=== PATIENT | female | born 1995 | race Caucasian/White ===

== ENCOUNTER 2020-02-24 15:25 | Emergency (ER) | payer BC ==
--- NOTE | 2020-02-24 15:56 | ER Document Report ---
ED Medical Screen (RME) - General Chief Complaint: Arm Pain Stated Complaint: LEFT ARM PAIN Time Seen by Provider: 02/24/20 15:42 Mode of Arrival: Wheelchair Information source: Patient Notes: 24-year-old female presented to ED for complaint of pain down the left arm that started yesterday. She states she went to the urgent care across the street and they told her her pulse was in the 150s she needed to come of the emergency room right away. She states she still has pain down her left arm. 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 She is short of breath and the pulse was 148 EKG shows 135 sinus tach. We will get blood chest x-ray and be seen by the doctors. I have greeted and performed a rapid initial assessment of this patient. A c omprehensive ED assessment and evaluation of the patient, analysis of test results and completion of medical decision making process will be conducted by an additional ED providers. Physical Exam - Vital signs Vitals: Temp Pulse Resp BP Pulse Ox 98.1 F 140 H 20 131/90 H 100 02/24/20 15:45 02/24/20 15:45 02/24/20 15:45 02/24/20 15:45 02/24/20 15:45 Course - Vital Signs Vital signs: Temp Pulse Resp BP Pulse Ox 98.1 F 140 H 20 131/90 H 100 02/24/20 15:45 02/24/20 15:45 02/24/20 15:45 02/24/20 15:45 02/24/20 15:45
--- NOTE | 2020-02-24 16:28 | RADIOLOGY REPORT (SQ) ---
EXAM DESCRIPTION: CHEST 2 VIEWS IMAGES COMPLETED DATE/TIME: 02/24/2020 4:07 pm REASON FOR STUDY: palpitations left arm pain COMPARISON: None. EXAM PARAMETERS: NUMBER OF VIEWS: two views TECHNIQUE: Digital Frontal and Lateral radiographic views of the chest acquired. RADIATION DOSE: NA LIMITATIONS: none FINDINGS: LUNGS AND PLEURA: No opacities, masses or pneumothorax. No pleural effusion. MEDIASTINUM AND HILAR STRUCTURES: No masses or contour abnormalities. HEART AND VASCULAR STRUCTURES: Heart normal size. No evidence for failure. BONES: No acute findings. HARDWARE: None in the chest. OTHER: No other significant finding. IMPRESSION: NO ACUTE RADIOGRAPHIC FINDING IN THE CHEST. TECHNICAL DOCUMENTATION: JOB ID: [id number] 2010 [employer]- All Rights Reserved Reading location - IP/workstation name: [email or web address]
[2020-02-24] MEDS ORDERED: NORMAL SALINE 1000 ML 1,000 ML IV ONE (16:34)
--- NOTE | 2020-02-24 16:40 | ER Document Report ---
ED General - General Mode of Arrival: Wheelchair <SARAI GARCIA - Last Filed: 02/24/20 20:03> <MERRICKBELENRONANROYCE - Last Filed: 02/24/20 22:28> - General Chief Complaint: Chest Pain Stated Complaint: LEFT ARM PAIN Time Seen by Provider: 02/24/20 15:42 Primary Care Provider: MARTHA FOLEY MD [ACTIVE STAFF] - 02/26/20 Notes: Patient is a 24-year-old white female with no significant past medical history presents to the emergency department with a chief complaint of left arm pain. She states it began maybe 3 days ago she cannot recall specifically. She states that it is a discomfort in the left arm that is mild vague. She states she is not able to explain it specifically. She states that initially waxed and waned but recently has become more constant. She states she began to worry given that it was her left arm so she came for evaluation. She states the only medicine she takes daily is an oral contraceptive medicine. She denies any associated chest pain or shortness of breath. Denies any lower extremity pain or swelling. Denies history of DVT or PE, recent surgery, recent travel, recent immobilization, history of cancer, non-smoker, hemoptysis. No syncopal episodes. She reports that every time she is in a doctor's office or around [facility] for herself she gets tachycardic. She states they always mention this to her and she refers to it as "white coat syndrome or something". (SARAI GARCIA) - Related Data Allergies/Adverse Reactions: orange Allergy (Verified 02/24/20 15:54) Past Medical History - General Information source: Patient - Social History Smoking Status: Unknown if Ever Smoked Family History: Reviewed & Not Pertinent <SARAI GARCIA - Last Filed: 02/24/20 20:03> Review of Systems - Review of Systems Constitutional: denies: Fever EENT: denies: Blurred vision Cardiovascular: denies: Chest pain, Palpitations, Heart racing, Orthopnea, Dyspnea, Syncope, Dizziness, Lightheaded, Edema Respiratory: denies: Cough, Hurts to breathe, Short of breath, Wheezing Gastrointestinal: denies: Abdominal pain, Diarrhea, Nausea, Vomiting Genitourinary: denies: Pain Female Genitourinary: denies: Irregular period, Vaginal bleeding Musculoskeletal: Other - Arm pain Skin: denies: Change in color Hematologic/Lymphatic: denies: Easy bleeding Neurological/Psychological: denies: Headaches <SARAI GARCIA Last Filed: 02/24/20 20:03> Physical Exam - General General appearance: Appears well, Alert In distress: None - HEENT Head: Normocephalic, Atraumatic Eyes: Normal Conjunctiva: Normal Extraocular movements intact: Yes Eyelashes: Normal Pupils: PERRL Pharynx: Normal Neck: Normal, Supple - Respiratory Respiratory status: No respiratory distress Chest status: Nontender Breath sounds: Normal Chest palpation: Normal - Cardiovascular Rhythm: Regular Heart sounds: Normal auscultation Murmur: No - Abdominal Inspection: Normal Distension: No distension Bowel sounds: Normal Tenderness: Nontender Organomegaly: No organomegaly - Extremities General upper extremity: Normal inspection, Nontender, Normal color, Normal ROM, Normal temperature General lower extremity: Normal inspection, Nontender, Normal color, Normal ROM, Normal temperature, Normal weight bearing. No: Bautista's sign - Neurological Neuro grossly intact: Yes Cognition: Normal Orientation: AAOx4 [place] Coma Scale Eye Opening: Spontaneous [place] Coma Scale Verbal: Oriented [place] Coma Scale Motor: Obeys Commands [place] Coma Scale Total: 15 Speech: Normal Cranial nerves: Normal Cerebellar coordination: Normal Additional motor exam normals: Equal block inspector Sensory: Normal - Psychological Associated symptoms: Normal affect, Normal mood - Skin Skin Temperature: Warm Skin Moisture: Dry Skin Color: Normal <SARAI GARCIA Last Filed: 02/24/20 20:03> - Vital signs Vitals: Temp Pulse Resp BP Pulse Ox 98.1 F 140 H 20 131/90 H 100 02/24/20 15:45 02/24/20 15:45 02/24/20 15:45 02/24/20 15:45 02/24/20 15:45 Course - Laboratory Result Diagrams: 02/24/20 16:41 02/24/20 16:41 <SARAI GARCIA Last Filed: 02/24/20 20:03> - Laboratory Result Diagrams: 02/24/20 16:41 02/24/20 16:41 <ROYCE DUONG - Last Filed: 02/24/20 22:28> - Re-evaluation Re-evalutation: 02/24/20 16:40 EKG: At 1551. Sinus tachycardia at 135 bpm. Normal intervals. No STEMI. Interpreted by ED attending. 02/24/20 19:21 Patient's work-up is completely unremarkable with the exception of the tachycardia. Discussed with the patient and she states that she feels very anxious and nervous "all the time". Discussed with Dr. Walton who agrees with plan for antianxiety medication to see if that helps the heart rate. We will continue to monitor. 02/24/20 20:03 Pending thyroid studies and trial of Ativan to see if the anxiety and heart rate improves, patient will be signed out to oncoming provider, Royce Duong PA-C at this time. (SAARI GARCIA) 02/24/20 22:26 On my evaluation at bedside patient's heart rate is 110-113 but does rise higher when I entered the room. She is calm and well-appearing. She has no current complaints. Review of records shows that CBC, chemistry, troponin, CTA, and TSH are all unremarkable. Free T4 had a lab error as it is still pending but patient is requesting to leave. I discussed with patient potentially placing her on beta-nidia because of her tachycardia, however after discussing options patient elected to not have the medication and instead follow-up with cardiology. She states she is not on stimulants including Sudafed, Adderall, or even significant caffeine. This time there does not appear to be any life- threatening etiology, patient will be discharged to follow-up with cardiology closely and she will return for concerning symptoms. Were discussed. Patient and boyfriend state understanding and agreement. Stable and well-appearing at time of discharge. (ROYCE DUONG) - Vital Signs Vital signs: Temp Pulse Resp BP Pulse Ox 98.1 F 140 H 18 120/73 100 02/24/20 15:45 02/24/20 15:45 02/24/20 17:01 02/24/20 17:00 02/24/20 17:01 - Laboratory Laboratory results interpreted by me: 02/24/20 02/24/20 02/24/20 16:41 16:41 16:41 Seg Neutrophils % 81.1 H D-Dimer 0.53 H Sodium 134.6 L Urine Ketones 02/24/20 17:26 Seg Neutrophils % D-Dimer Sodium Urine Ketones 20 H Discharge <GARCIASARAI - Last Filed: 02/24/20 20:03> <ROYCE DUONG - Last Filed: 02/24/20 22:28> - Discharge Clinical Impression: Left arm pain, Tachycardia Condition: Stable Disposition: HOME, SELF-CARE Additional Instructions: Your work-up here including your heart, lung, thyroid, etc. do not show any concerning findings. The pain in your arm is most likely musculoskeletal and should simply resolve with time. Your heart rate is elevated here. Please follow-up with the cardiology referral, call on Wednesday to be seen in close follow-up for additional management. Return if you worsen including difficulty breathing, chest pain, passing out, or any other concerning or worsening symptoms. Referrals: MARTHA FOLEY MD [ACTIVE STAFF] - 02/26/20
[2020-02-24 17:04] LABS: ABSOLUTE LYMPHOCYTES (AUTO) 1.1 10^3/uL (0.5-4.7); ABSOLUTE MONOCYTES (AUTO) 0.5 10^3/uL (0.1-1.4); ABSOLUTE NEUT (AUTO) 7.2 10^3/uL (1.7-8.2); BASOPHILS % (AUTO) 0.5 % (0-2); EOSINOPHILS % (AUTO) 0.1 % (0-6); HEMATOCRIT 42.6 % (36.0-47.0); HEMOGLOBIN 14.8 g/dL (12.0-15.5); MEAN CORPUSCULAR HEMOGLOBIN 32.3 pg (27.0-33.4); MEAN CORPUSCULAR HGB CONC 34.7 g/dL (32.0-36.0); MEAN CORPUSCULAR VOLUME 93 fl (80-97); MONOCYTES % (AUTO) 5.3 % (3-13); PLATELET COUNT 319 10^3/uL (150-450); RED BLOOD COUNT 4.58 10^6/uL (3.72-5.28); RED CELL DISTRIBUTION WIDTH 12.7 % (11.5-14.0); SEGMENTED NEUTROPHILS % (AUTO) 81.1 % (42-78); TOTAL CELLS COUNTED % (AUTO) 100 %; WHITE BLOOD COUNT 8.8 10^3/uL (4.0-10.5)
[2020-02-24 17:10] LABS: INTERNATIONAL RATION (INR) 1.07; PARTIAL THROMBOPLASTIN TIME 26.3 SEC (23.5-35.8); PROTHROMBIN TIME 13.9 SEC (11.4-15.4)
[2020-02-24 17:19] LABS: D-DIMER 0.53 ug/mL (0.00-0.50)
[2020-02-24 17:35] LABS: ALBUMIN 4.4 g/dL (3.5-5.0); ALKALINE PHOSPHATASE 51 U/L (38-126); ANION GAP 11 (5-19); ASPARTATE AMINO TRANSFERASE 24 U/L (14-36); BILIRUBIN,TOTAL 0.6 mg/dL (0.2-1.3); BLOOD UREA NITROGEN 12 mg/dL (7-20); CARBON DIOXIDE 22 mmol/L (22-30); CHLORIDE 102 mmol/L (98-107); CREATINE KINASE 50 U/L (30-135); GLUCOSE 106 mg/dL (75-110); POTASSIUM 3.9 mmol/L (3.6-5.0); TOTAL PROTEIN 7.5 g/dL (6.3-8.2)
[2020-02-24 18:04] LABS: APPEARANCE,URINE CLEAR; BILIRUBIN,URINE NEGATIVE (NEGATIVE); COLOR,URINE STRAW; GLUCOSE, URINE NEGATIVE (NEGATIVE); KETONES,URINE 20 mg/dL (NEGATIVE); PROTEIN,URINE NEGATIVE (NEGATIVE); URINE SPECIFIC GRAVITY 1.002; UROBILINOGEN,URINE NEGATIVE mg/dL (<2.0)
[2020-02-24 18:22] LABS: URINE AMPHETAMINES SCREEN NEGATIVE; URINE BARBITURATES SCREEN NEGATIVE; URINE BENZODIAZEPINES SCREEN NEGATIVE; URINE COCAINE SCREEN NEGATIVE; URINE MARIJUANA (THC) SCREEN NEGATIVE; URINE METHADONE SCREEN NEGATIVE; URINE PHENCYCLIDINE SCREEN NEGATIVE
--- NOTE | 2020-02-24 18:34 | RADIOLOGY REPORT (SQ) ---
EXAM DESCRIPTION: CTA CHEST IMAGES COMPLETED DATE/TIME: 02/24/2020 6:20 pm REASON FOR STUDY: left arm pain, tachy, elevated dimer COMPARISON: Chest radiograph TECHNIQUE: CT scan of the chest performed using helical scanning technique with dynamic intravenous contrast injection. Images reviewed with lung, soft tissue and bone windows. Reconstructed coronal and sagittal MPR images reviewed. Additional 3 dimensional post-processing performed to develop Maximal Intensity Projection images (AK P). All images stored on PACS. All CT scanners at this facility use dose modulation, iterative reconstruction, and/or weight based d osing when appropriate to reduce radiation dose to as low as reasonably achievable (ALARA). [facility]: Dose Right [facility]: CareDose [facility]: Dose Right [facility]: Teradose 4D [facility]: FastDue CONTRAST TYPE AND DOSE: contrast/concentration: Isovue 350.00 mmol/ml; Total Contrast Delivered: 49. 0 ml; Total Saline Delivered: 75.0 ml Contrast bolus not optimized for the pulmonary arteries. RENAL FUNCTION: None required. The patient is less than 50 years old. RADIATION DOSE: CT Rad equipment meets quality standard of care and radiation dose reduction techniq ues were employed. CTDIvol: 6.6 - 14.3 mGy. DLP: 530 mGy-cm. . LIMITATIONS: None. FINDINGS: LUNGS AND PLEURA: No masses, infiltrates, or pneumothorax. No pleural effusions or pleura l calcifications. AORTA AND GREAT VESSELS: No aneurysm. No dissection. HEART: No pericardial effusion. No significant coronary artery calcifications. PULMONARY ARTERIES: No emboli visualized in the main pulmonary arteries or the proximal segmental bra nches. HILAR AND MEDIASTINAL STRUCTURES: No identified masses or abnormal nodes. HARDWARE: None in the chest. UPPER ABDOMEN: No significant findings. Limited exam. THYROID AND OTHER SOFT TISSUES: No masses. No adenopathy. BONES: No acute or significant finding. 3D MIPS: Confirm above findings. OTHER: No other significant finding. IMPRESSION: NORMAL CTA OF THE CHEST. NO proximal pulmonary emboli PULMONARY EMBOLI. COMMENT: Bolus not optimal for the pulmonary arteries. Quality ID # 436: Final reports with documentation of one or more dose reduction techniques (e.g., Au tomated exposure control, adjustment of the mA and/or kV according to patient size, use of iterative reconstruction technique) TECHNICAL DOCUMENTATION: JOB ID: [id number] 2010 [employer]- All Rights Reserved Reading location - IP/workstation name: [email or web address]
[2020-02-24] MEDS ORDERED: LORAZEPAM INJ 2 MG/1 ML VIAL IM ONE (19:15)
[2020-02-24] MEDS ORDERED: LORAZEPAM INJ 2 MG/1 ML VIAL IV ONE (20:16)
--- NOTE | 2020-02-24 21:36 | EKG REPORT ---
SEVERITY:- ABNORMAL ECG - SINUS TACHYCARDIA GISELA, CONSIDER BIATRIAL ABNORMALITIES PROBABLE RVH W/ SECONDARY REPOL ABNORMALITY INFERIOR Q WAVES, PROBABLY NORMAL VARIATION : Confirmed by: Delio Nichols 24-Feb-2020 21:35:24
[2020-02-24 22:35] VITALS: BP 111/68
== END 2020-02-24 22:40 | disposition home or self-care (01) ==
LOC: ER 15:25
DX: M79.602 Pain in left arm (principal); F41.9 Anxiety disorder, unspecified; R00.0 Tachycardia, unspecified; Z79.3 Long term (current) use of hormonal contraceptives; Z91.018 Allergy to other foods
CPT/HCPCS: 93005; 99284; 96361; 96374; 36415; 84439; 82550; 83735; 84443; 84703; 85025; 85610; 85730; 80053; 81001; 84484; 80307; 85379; 71046; 71275; 93010; J2060; J7030

== ENCOUNTER 2020-03-01 11:41 | Emergency (ER) | payer BC ==
[2020-03-01] MEDS ORDERED: NORMAL SALINE 1000 ML 1,000 ML IV ONE (12:05)
--- NOTE | 2020-03-01 12:08 | ER Document Report ---
ED Medical Screen (RME) - General Stated Complaint: POSSIBLE ALLERGIC REACTION Time Seen by Provider: 03/01/20 12:00 Primary Care Provider: MARTHA FOLEY MD [Primary Care Provider] - Follow up as needed Notes: Patient is a 24-year-old female who presents to the emergency department with a chief complaint of a possible allergic reaction to clindamycin. She was started on Augmentin for tooth pain, but then ended up developing swelling 3 days ago. She stopped that and started taking clindamycin. Patient states that she is taking Benadryl to help with the swelling. States that the swelling has not gone away. Patient states that she is supposed to have a root canal in her left front incisor, but cannot have it until the infection clears. Denies any shortness of breath or difficulty breathing. Exam: Heart rate 131. Small amount of erythema noted to left upper lip. I have greeted and performed a rapid initial assessment of this patient. A comprehensive ED assessment and evaluation of the patient, analysis of test results and completion of medical decision making process will be conducted by an additional ED providers. - Related Data Allergies/Adverse Reactions: orange Allergy (Verified 02/24/20 15:54) Past Medical History - Social History Frequency of alcohol use: None Drug Abuse: None Physical Exam - Vital signs Vitals: Temp Pulse Resp BP Pulse Ox 99.1 F 131 H 18 136/77 H 100 03/01/20 11:49 03/01/20 11:49 03/01/20 11:49 03/01/20 11:49 03/01/20 11:49 Course - Vital Signs Vital signs: Temp Pulse Resp BP Pulse Ox 99.1 F 131 H 18 136/77 H 100 03/01/20 11:49 03/01/20 11:49 03/01/20 11:49 03/01/20 11:49 03/01/20 11:49 Doctor's Discharge - Discharge Referrals: MARTHA FOLEY MD [Primary Care Provider] - Follow up as needed
--- NOTE | 2020-03-01 13:42 | ER Document Report ---
ED General - General Chief Complaint: Allergic Reaction Stated Complaint: POSSIBLE ALLERGIC REACTION Time Seen by Provider: 03/01/20 12:00 Primary Care Provider: MARTHA FOLEY MD [Primary Care Provider] - Follow up as needed - HPI Notes: Patient is a 24-year-old family presents to the emergency department for evaluation. She was actually seen here on February 23 for elevated heart rate, some dizziness, left arm pain. She plan to follow-up with primary care. On Wednesday she developed some pain and swelling in her left maxillary front incisor. She saw dentist, who noted some infection there. He states she needs a root canal. He started her on amoxicillin. She woke Wednesday morning with significant facial swelling. She called her dentist. He changed her from amoxicillin to clindamycin. She is been taking Benadryl. She states that since then she still been getting symmetrical lip swelling. She has had no swelling of the back of her throat, difficulty breathing, no difficulty swallowing. She denies any urticaria, rashes of any sort, or itching. She states she was concerned that, since she was still having swelling in her lips intermittently, that it could be an allergic reaction to the clindamycin. The patient admits that her swelling gets better throughout the day, it seems to be worse in the morning. She states her tooth pain seems to be improving moderately. She is continuing to take the Benadryl as she is concerned about a continued reaction. She has had no nausea or vomiting. She denies any shortness of breath. She does feel intermittently dizzy. Patient states she has palpitations, but states that she has tachycardia around all healthcare providers. This is not a new problem, was worked up at her last visit for left arm pain. - Related Data Allergies/Adverse Reactions: orange Allergy (Verified 02/24/20 15:54) Home Medications: Oral contraceptive, clindamycin Past Medical History - General Information source: Patient - Social History Smoking Status: Never Smoker Frequency of alcohol use: None Drug Abuse: None Family History: CAD Review of Systems - Review of Systems Constitutional: See HPI EENT: See HPI Cardiovascular: Palpitations -: Yes All other systems reviewed and negative Physical Exam - Vital signs Vitals: Temp Pulse Resp BP Pulse Ox 99.1 F 131 H 18 136/77 H 100 03/01/20 11:49 03/01/20 11:49 03/01/20 11:49 03/01/20 11:49 03/01/20 11:49 - Notes Notes: Vital signs reviewed, please refer to chart. Head is normocephalic, atraumatic. Pupils equal round, reactive to light. Very minimal symmetrical edema noted to both upper and lower lips. The patient has some mild erythema overlying the left first maxillary incisor, but no fluctuance. I do not appreciate any other facial edema or erythema. No posterior pharyngeal edema or erythema. Neck is supple without meningismus. Heart is regular rate and rhythm. Lungs are clear to auscultation bilaterally. Abdomen is soft, nontender, normoactive bowel sounds throughout. Extremities without cyanosis, clubbing. Posterior calves are nontender. Peripheral pulses are equal. Skin is warm and dry. Patient is awake, alert, neurological exam is nonfocal. Course - Re-evaluation Re-evalutation: 03/01/20 13:42 Patient presents to the emergency department for evaluation. She has known tachycardia, had an extensive work-up for this last time, which I reviewed and found to be unremarkable. The patient states this is not new, she is really here for the swelling of her lips. On exam she has minimal facial swelling. She has no posterior pharyngeal swelling. She has no urticaria. I explained to her that this minimal swelling could be from the infection in her tooth, which seems to be properly addressed, or left over from her amoxicillin allergy. At any rate, I am not overwhelmed by any findings concerning for a new clindamycin allergy. I am not seeing any signs of airway compromise or other significant allergic reaction. The patient's heart rate did raise from 10 6-1 28 when she went from supine to sitting up, so she will be given IV fluids. Otherwise, patient is stable. Awaiting blood work, we will continue to monitor. 03/01/20 15:14 Patient's laboratory investigations are entirely unremarkable. Her heart rate is currently 103. She has had no worsening of her swelling. She is told that she can use cold compresses. I advised her she could switch to a nonsedating a ntihistamine during the day. She needs to return if she develops any swelling in the back of her throat, difficulty speaking or swallowing, difficulty breathing, or any other new symptoms. She voiced understanding. Otherwise she is encouraged to continue clindamycin and follow-up with her dentist as well as primary care next week. Return to the ED with worsening. - Vital Signs Vital signs: Temp Pulse Resp BP Pulse Ox 99.1 F 131 H 16 125/82 100 03/01/20 11:49 03/01/20 11:49 03/01/20 14:00 03/01/20 14:00 03/01/20 14:00 - Laboratory Result Diagrams: 03/01/20 12:57 03/01/20 12:57 Laboratory results interpreted by me: 03/01/20 03/01/20 12:57 12:57 Lymph % (Auto) 9.2 L Seg Neutrophils % 85.9 H Sodium 135.8 L Discharge - Discharge Clinical Impression: Swelling of both lips Condition: Stable Disposition: HOME, SELF-CARE Additional Instructions: The mild lip swelling you are experiencing may be secondary to the dental infection or residual effects from your amoxicillin reaction. Cold compresses to the area, do not apply ice directly to the lips for prolonged periods of time. Continue antihistamines. You should consider a nonsedating antihistamine, such as Claritin, for the daytime. Try to keep your head elevated at night, as this is when swelling will worsen. If you develop increased swelling, difficulty breathing or swallowing, or any other new concerning symptoms, please return immediately to the emergency department for reevaluation. Referrals: MARTHA FOLEY MD [Primary Care Provider] - Follow up as needed COLLETTE BE MD [ACTIVE STAFF] - Follow up as needed
[2020-03-01 13:47] LABS: ABSOLUTE LYMPHOCYTES (AUTO) 0.7 10^3/uL (0.5-4.7); ABSOLUTE MONOCYTES (AUTO) 0.4 10^3/uL (0.1-1.4); BASOPHILS % (AUTO) 0.3 % (0-2); EOSINOPHILS % (AUTO) 0.2 % (0-6); HEMATOCRIT 43.6 % (36.0-47.0); HEMOGLOBIN 15.2 g/dL (12.0-15.5); LYMPHOCYTES % (AUTO) 9.2 % (13-45); MEAN CORPUSCULAR HEMOGLOBIN 32.3 pg (27.0-33.4); MEAN CORPUSCULAR HGB CONC 34.7 g/dL (32.0-36.0); MEAN CORPUSCULAR VOLUME 93 fl (80-97); MONOCYTES % (AUTO) 4.4 % (3-13); RED BLOOD COUNT 4.69 10^6/uL (3.72-5.28); RED CELL DISTRIBUTION WIDTH 12.8 % (11.5-14.0); SEGMENTED NEUTROPHILS % (AUTO) 85.9 % (42-78); TOTAL CELLS COUNTED % (AUTO) 100 %; WHITE BLOOD COUNT 8.1 10^3/uL (4.0-10.5)
[2020-03-01 14:10] LABS: ALBUMIN 4.5 g/dL (3.5-5.0); ALKALINE PHOSPHATASE 53 U/L (38-126); ANION GAP 7 (5-19); ASPARTATE AMINO TRANSFERASE 17 U/L (14-36); BILIRUBIN,TOTAL 0.6 mg/dL (0.2-1.3); BLOOD UREA NITROGEN 8 mg/dL (7-20); CALCIUM 9.9 mg/dL (8.4-10.2); CARBON DIOXIDE 25 mmol/L (22-30); CHLORIDE 104 mmol/L (98-107); GLUCOSE 102 mg/dL (75-110); POTASSIUM 4.6 mmol/L (3.6-5.0)
[2020-03-01 14:37] LABS: PLATELET COUNT 336 10^3/uL (150-450)
[2020-03-01 15:39] VITALS: BP 119/76
--- NOTE | 2020-03-01 22:50 | EKG REPORT ---
SEVERITY:- OTHERWISE NORMAL ECG - SINUS TACHYCARDIA : Confirmed by: Melia Ho MD 01-Mar-2020 22:49:28
== END 2020-03-01 15:39 | disposition home or self-care (01) ==
LOC: ER 11:41
DX: R22.0 Localized swelling, mass and lump, head (principal); K04.7 Periapical abscess without sinus; R42 Dizziness and giddiness; R00.2 Palpitations; R00.0 Tachycardia, unspecified; Z79.3 Long term (current) use of hormonal contraceptives; Z91.018 Allergy to other foods; Z82.49 Family history of ischemic heart disease and other diseases of the circulatory system
CPT/HCPCS: 93005; 99283; 96360; 36415; 85025; 80053; 93010; J7030

== ENCOUNTER → 2020-03-25 | Outpatient (CLI) | payer BC ==
--- NOTE | 2020-03-26 21:55 | XCELERA REPORT ---
[address] [address] Transthoracic Echocardiogram Report Name: KEVIN LADD Age: 25 yrs Gender: Female : 1995 Patient Status: Outpatient Patient Location: Study Date: 03/25/2020 09:07 AM History: Tachycardia Dental abscess Height: 69 in Weight: 115 lb BSA: 1.6 m2 Procedure: A complete two-dimensional transthoracic echocardiogram was performed (2D, M-mode, spectral and color flow Doppler). The study was technically adequate with some images being suboptimal in quality. Reason For Study: TACHYCARDIA Previous Evaluation: No previous studies were available. History: Tachycardia Dental abscess. Ordering Physician: MARTHA FOLEY Performed By: Hector Gomez Interpretation Summary No vegetation seen on visualized heart valves. Left ventricular systolic function is normal. The Ejection Fraction estimate is 55-60% The right ventricle is normal in size and function. There is no mitral regurgitation noted. There is no aortic valve stenosis There is a trace amount of tricuspid regurgitation Doppler findings do not suggest pulmonary hypertension. There is no pericardial effusion. No vegetation seen on visualized heart valves. MMode/2D Measurements & Calculations RVDd: 2.1 cm LVIDd: 4.2 cm FS: 37.4 % Ao root diam: 2.0 cm IVSd: 0.62 cm LVIDs: 2.6 cm EDV(Teich): 79.4 ml Ao root area: 3.2 cm2 LVPWd: 0.60 cm ESV(Teich): 25.6 ml LA dimension: 2.7 cm EF(Teich): 67.7 % Doppler Measurements & Calculations MV E max blaze: MV P1/2t max blaze: Ao V2 max: LV V1 max P.7 cm/sec 84.2 cm/sec 109.2 cm/sec 3.7 mmHg MV A max blaze: MV P1/2t: 67.9 msec Ao max PG: LV V1 max: 51.5 cm/sec MVA(P1/2t): 3.2 cm2 4.8 mmHg 96.7 cm/sec MV E/A: 1.6 MV dec slope: 363.3 cm/sec2 MV dec time: 0.20 sec PA V2 max: MV P1/2t-pr_phl: 93.8 cm/sec 67.9 msec PA max P.5 mmHg Left Ventricle The left ventricle is normal in size. There is normal left ventricular wall thickness. Left ventricular systolic function is normal. The Ejection Fraction estimate is 55-60%. Doppler measurements suggest normal left ventricular diastolic function. Right Ventricle The right ventricle is normal in size and function. Atria The right atrium is normal. The left atrial size is normal. The interatrial septum is intact with no evidence for an atrial septal defect. There is no Doppler evidence for an interatrial shunt. Mitral Valve The mitral valve is grossly normal. There is no vegetation seen on the mitral valve. There is no evidence of mitral valve prolapse. There is no mitral valve stenosis. There is no mitral regurgitation noted. Aortic Valve The aortic valve is trileaflet. The aortic valve opens well. The aortic valve is normal in structure and function. There is no aortic valvular vegetation. There is no aortic valve stenosis. No aortic regurgitation is present. Tricuspid Valve The tricuspid valve is normal in structure and function. There is a trace amount of tricuspid regurgitation. Tricuspid regurgitation jet envelope not well defined to measure RV systolic pressure accurately. Doppler findings do not suggest pulmonary hypertension. Pulmonic Valve The pulmonic valve is not well visualized. There is a trace amount of pulmonic regurgitation. Great Vessels The aortic root is normal size. The inferior vena cava appeared normal and decreased > 50% with respiration (RAP 5-10 mmHg). Effusions There is no pericardial effusion. : MARTHA FOLEY Anil
== END ==
LOC: SP 08:45
PROVIDERS: ATTEND Internal Medicine
DX: R00.0 Tachycardia, unspecified (principal); K04.7 Periapical abscess without sinus
CPT/HCPCS: 93306